=== PATIENT | female | born 1935 | race Caucasian/White ===

== ENCOUNTER → 2017-10-24 | Outpatient (CLI) | payer OTHER | END | disposition home or self-care (01) | LOC: RAD 12:42 | DX: M25.561 Pain in right knee (principal); M25.562 Pain in left knee ==

== ENCOUNTER 2018-01-25 09:56 | Emergency (ER) | payer OTHER ==
[~2018-01-25] VITALS: Ht 167.6 cm; Wt 104.3 kg
[2018-01-25] MEDS ORDERED: ELIQUIS5 MG (10:16)
[2018-01-25] MEDS ORDERED: CARVEDILOL3.125 MG (10:16)
[2018-01-25] MEDS ORDERED: SIMVASTATIN5 MG (10:17)
[2018-01-25] MEDS ORDERED: COZAAR25 MG (10:17)
[2018-01-25] MEDS ORDERED: TORSEMIDE20 MG (10:17)
[2018-01-25] MEDS ORDERED: CLOTRIMAZOLE AF15 G3 (10:18)
== END 2018-01-25 11:31 | disposition home or self-care (01) ==
LOC: ER 09:56
DX: I89.0 Lymphedema, not elsewhere classified (principal)